=== PATIENT | male | born 2000 | race Caucasian/White ===

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

== ENCOUNTER 2025-06-30 10:46 | Inpatient (IN) ==
[2025-06-30 11:34] LABS: Appearance Urine Turbid (Clear); Glucose Urine UA Negative (Negative)
[2025-06-30 11:46] LABS: Hematocrit (blood only) 40.8 % (42.0-52.0); Hemoglobin 14.3 g/dl (14.0-18.0); Immature Granulocytes # (auto) 0.02 K/uL (0.01-0.20); Immature Granulocytes % (auto) 0.3 %; Mean Corpuscular Hemoglobin 29.8 pg (25.0-34.0); Mean Corpuscular Volume 85.0 fL (80.0-100.0); Platelet Count 246 K/uL (130-400); RDW Standard Deviation 36.9 fL (36.4-46.3); Red Blood Count 4.80 M/uL (4.70-6.10); White Blood Count 7.26 K/ul (4.8-10.8)
[2025-06-30 11:47] LABS: Epithelial Cell Urine 0-2 /hpf (0-2)
[2025-06-30 11:57] LABS: Amphetamines+Metham, Urine Neg (Neg); MDMA (Ecstacy), Urine Pos (Neg); Marijuana, Urine Neg (Neg)
[2025-06-30 12:05] LABS: Alanine Aminotransferase 31.0 U/L (7-52); Albumin Globulin Ratio 1.7 (0.9-2); Alkaline Phosphatase 49.0 U/L (34-104); Anion Gap 7.0 (3-11); Bilirubin,Total 0.5 mg/dl (0.2-1.0); Blood Urea Nitrogen 14.0 mg/dl (6-23); Calcium 9.6 mg/dl (8.6-10.3); Carbon Dioxide 27.0 mmol/L (21-32); Chloride 104.0 mmol/L (98-107); Creatinine Clr Calc Pharmacy 124.9 ml/min; Globulin 2.8 gm/dl (2.5-4.0); Glucose 114.0 mg/dl (70-99(Fasting)); Potassium 4.1 mmol/L (3.5-5.1); Sodium 138.0 mmol/L (136-145); Total Protein 7.5 gm/dl (6.0-8.3)
[2025-06-30 12:09] LABS: Acetaminophen < 3 ug/ml (10-30); Salicylate < 3.0 mg/dl (3.0-30)
[2025-06-30 12:19] LABS: Thyroid Stimulating Hormone 2.591 uIu/ml (0.300-4.500)
--- NOTE | 2025-06-30 12:39 | Emergency Department Note ---
Impression & Plan Depression with suicidal ideation ED Provider Note NAME: JODY LEE AGE: 24 SEX: M : 2000 ARRIVES VIA: Walk-In INFORMANT: Patient ED PROVIDER(S): Nando Askew MD CHIEF COMPLAINT: Suicidal ideation PLAN: Disposition: Inpatient psychiatric treatment. MEDICAL DECISION MAKING: The patient is a pleasant 24-year-old gentleman with a past medical history of anxiety/depression who presents to the emergency department accompanied by his mother for evaluation of suicidal ideation that has been worsening over the past couple of days where he reports fleeting thoughts of killing himself with a gun which he does have access to. Patient was referred to the emergency department by his outpatient providers at [facility]. The patient is interested in inpatient psychiatric treatment. He denies any recent illness. On my evaluation the patient is in no acute distress, afebrile with stable vital signs. He endorses suicidal ideation with intermittent plan. WBC, hemoglobin and platelets within normal limits. Chemistry without metabolic acidosis. Electrolytes and LFTs unremarkable. TSH within normal limits. UA appears contaminated with 1+ bacteria but no nitrites. Urine drug screen was unremarkable. COVID-19 RNA, ELISA was negative. The patient was medically cleared. Referral was placed to [facility] who accepted the patient for voluntary inpatient psychiatric treatment. 201 was signed. Triage Nursing notes reviewed and agree them. Prior/external medical records reviewed Vital Signs: reviewed Differential diagnosis: Mood disorder, infection, hypoglycemia, electrolyte abnormalities, cardiac sources, intracerebral event, toxicologic, trauma, neurologic, as well as other pathologies. ER treatment provided: See below. Laboratory studies: See below Consultation(s): Case management. HPI: Per MDM. ROS: See above HPI for pertinent positives & negatives. A total of 10 systems reviewed and were otherwise negative. VITALS:See Below PHYSICAL EXAMINATION: GENERAL: Awake, alert, melancholy-appearing, in no distress HENT: Normocephalic, atraumatic. Oropharynx unremarkable. EYES: Normal conjunctiva. Sclera non-icteric. NECK: Supple. No nuchal rigidity. FROM. No JVD. RESPIRATORY: Clear to auscultation. CARDIAC: Regular rate, normal rhythm. Extremities warm and well perfused. Pulses equal. ABDOMEN: Soft, non-distended. No tenderness to palpation. No rebound or guarding. No masses. MUSCULOSKELETAL: Chest examination reveals no tenderness. The back is symmetrical on inspection without obvious abnormality. There is no CVA tenderness to palpation. No joint edema. LOWER EXTREMITIES: Calves are equal size bilaterally and non-tender. No edema. No discoloration. NEURO: Normal sensorium. No sensory or motor deficits noted. SKIN: No rash or jaundice noted. PSYCH: Depression, Suicidal ideation, intermittent plan. Nando Askew MD Past Med/Surg History Problem List (Updated 06/30/25 @ 17:16 by Nando Askew MD) Depression with suicidal ideation (Acute) Acid reflux (Chronic) Depression with anxiety (Chronic) Seasonal allergies (Chronic) Irritable bowel syndrome (IBS) (Chronic) Medical History Dysuria Atopic dermatitis History of gastroesophageal reflux (GERD) Surgical History History of wisdom tooth extraction Family History Mother Thyroid disease Kidney stones Father Asthma Sister No problems noted. 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 How many Children do You have: 0 Feels Safe at Home: Yes Childhood Exposure to Second-Hand Smoke: No Diet: regular caffeine: Yes Dental Care, Regularly: Yes Physical Activity Frequency: 1-2 Times per Week Seatbelt Use: always Sunscreen Use: Yes Do you think of yourself as: straight/heterosexual Gender Identity: Male Assistive Devices: None Allergies Allergies Allergy/AdvReac Type Severity Reaction Status Date / Time No Known Allergies Allergy Verified 03/11/24 08:59 Home Meds Home Medications Medication Instructions Recorded Confirmed desvenlafaxine succinate 25 mg 25 mg PO DAILY 06/30/25 06/30/25 tablet,extended release 24 hr trazodone 50 mg tablet 50 mg PO QPM 06/30/25 06/30/25 Previous Rx's Medication Instructions Recorded esomeprazole magnesium 20 mg 20 mg PO DAILY #90 caps 05/10/25 capsule,delayed release Results & Data (ED) Vital Signs Vital Signs - 24 hr 06/30/25 10:53 06/30/25 12:40 06/30/25 14:25 Temperature 36.5 C Temperature Source Temporal Artery Scan Pulse Rate 86 Pulse Rate [Finger] 99 H 101 H Pulse Rhythm Regular Pulse Strength Normal Respiratory Rate 20 17 17 Respiratory Effort / Characteristics Non-Labored Spontaneous Non-Labored Spontaneous Non-Labored Spontaneous Respiratory Depth Normal Normal Normal Respiratory Pattern Blood Pressure 122/85 Blood Pressure [Right Arm] 132/87 137/82 Blood Pressure Mean 97 Blood Pressure Mean [Right Arm] 102 100 Blood Pressure Position Sitting Pulse Oximetry 96 96 98 Oxygen Delivery Method Room Air Room Air Room Air Sepsis Recent Fever Within 48 Hours No Sepsis New/Unexplained Change in Mental Status N/A Sepsis Action Taken by Nursing No Action Required 06/30/25 15:52 Temperature Temperature Source Pulse Rate Pulse Rate [Finger] 88 Pulse Rhythm Pulse Strength Respiratory Rate 16 Respiratory Effort / Characteristics Non-Labored Spontaneous Respiratory Depth Normal Respiratory Pattern Regular Blood Pressure Blood Pressure [Right Arm] 122/70 Blood Pressure Mean Blood Pressure Mean [Right Arm] 87 Blood Pressure Position Pulse Oximetry 97 Oxygen Delivery Method Room Air Sepsis Recent Fever Within 48 Hours Sepsis New/Unexplained Change in Mental Status Sepsis Action Taken by Nursing Laboratory Data Attestation: I reviewed the patient's lab results. 06/30/25 11:23 06/30/25 11:23 Lab Results 06/30/25 06/30/25 Range/Units 11:04 11:23 WBC 7.26 (4.8-10.8) K/ul RBC 4.80 (4.70-6.10) M/uL Hgb 14.3 (14.0-18.0) g/dl Hct 40.8 L (42.0-52.0) % MCV 85.0 (80.0-100.0) fL MCH 29.8 (25.0-34.0) pg MCHC 35.0 (32.0-36.0) g/dL RDW Std Deviation 36.9 (36.4-46.3) fL RDW Coeff of Chema 11.9 (11.5-14.5) % Plt Count 246 (130-400) K/uL MPV 10.6 (9.4-12.4) fL Immature Gran % (Auto) 0.3 % Neut % (Auto) 61.2 % Lymph % (Auto) 27.4 % [place] % (Auto) 9.4 % Eos % (Auto) 1.1 % Baso % (Auto) 0.6 % Neut # (Auto) 4.45 (1.40-6.50) K/uL Lymph # (Auto) 1.99 (1.20-3.40) K/uL [place] # (Auto) 0.68 H (0.11-0.59) K/uL Eos # (Auto) 0.08 (0.00-0.50) K/uL Baso # (Auto) 0.04 (0.00-0.20) K/uL Immature Gran # (Auto) 0.02 (0.01-0.20) K/uL Sodium 138 (136-145) mmol/L Potassium 4.1 (3.5-5.1) mmol/L Chloride 104 (98-107) mmol/L Carbon Dioxide 27 (21-32) mmol/L Anion Gap 7 (3-11) BUN 14 (6-23) mg/dl Creatinine 1.01 (0.6-1.4) mg/dl Est Cr Clr Drug Dosing 124.9 ml/min eGFR 107.17 BUN/Creatinine Ratio 13.9 (10-20) Glucose 114 H (70-99(Fasting)) mg/dl Calcium 9.6 (8.6-10.3) mg/dl Total Bilirubin 0.5 (0.2-1.0) mg/dl AST 21 (13-39) U/L ALT 31 (7-52) U/L Alkaline Phosphatase 49 (34-104) U/L Total Protein 7.5 (6.0-8.3) gm/dl Albumin 4.7 (3.4-5.0) gm/dl Globulin 2.8 (2.5-4.0) gm/dl Albumin/Globulin Ratio 1.7 (0.9-2) TSH 2.591 (0.300-4.500) uIu/ml Urine Color Alyson Urine Appearance Turbid A (Clear) Urine pH 6.0 (4.5-7.5) Ur Specific [place] >= 1.030 (1.000-1.030) Urine Protein 1+ H (Negative) Urine Glucose (UA) Negative (Negative) Urine Ketones Negative (Negative) Urine Blood Trace-intact H (Negative) Urine Nitrite Negative (Negative) Urine Bilirubin Negative (Negative) Urine Urobilinogen Negative (Negative) Ur Leukocyte Esterase Negative (Negative) Urine RBC 0-2 (0-2) /hpf Urine WBC 0-5 (0-5) /hpf Ur Epithelial Cells 0-2 (0-2) /hpf Urine Bacteria 1+ H (None Seen) Urine Mucus Present A (None Prsent) Urine Sperm Present A (None Prsent) Urine Comment Salicylates < 3.0 L (3.0-30) mg/dl Urine Opiates Screen Neg (Neg) Ur Methadone, Qual Neg (Neg) Urine Fentanyl Screen Neg (Neg) Acetaminophen < 3 L (10-30) ug/ml Urine Barbiturates Neg (Neg) Ur Phencyclidine (PCP) Neg (Neg) U Amphetamin/Meth Scrn Neg (Neg) MDMA (Ecstasy) Screen Pos H (Neg) U Benzodiazepines Scrn Neg (Neg) Ur Cocaine Metabolite Neg (Neg) U Marijuana (THC) Screen Neg (Neg) Ethyl Alcohol mg/dL < 10.0 (<10.0) mg/dl Administered Medications Discontinued Medications Trazodone HCl (Trazodone Hcl 50 Mg Tab) 50 mg PO HS ONE Stop: 06/30/25 22:01 Last Admin: 06/30/25 21:16 Dose: 50 mg Documented By: LIZ Discharge Plan Visit Data Chief Complaint: Mental Health Evaluation Stated Complaint: DEPRESSION, SUICIDAL THOUGHTS ED Provider: Nando Askew Discharge Problem: Depression with suicidal ideation Patient Disposition: Admitted As Inpatient Condition: Fair Discharge Instructions Interventions: ED Discharge Assessment Last Done: 06/30/25 16:08
[2025-06-30] MEDS ORDERED: ALUMINUM/MAGNESIUM SUSP 30 ML UDC PO PRN (17:01)
[2025-06-30] MEDS ORDERED: SODIUM CHLORIDE 0.65% NA SOLN 45 ML (OCEAN) PRN (17:01)
[2025-06-30] MEDS ORDERED: BISMUTH SUBSALICYLATE 262 MG CHEW PO PRN (17:01)
[2025-06-30] MEDS ORDERED: MAGNESIUM HYDROXIDE SUSP 30 ML UDC PO PRN (17:01)
[2025-06-30 18:04] VITALS: O2SAT 98
--- NOTE | 2025-07-01 08:40 | History & Physical ---
Date of Service July 01, 2025 Impression / Recommendations Impression Diagnostically consistent with unspecified depressive disorder likely major depressive disorder recurrent episode with suicidal ideation and co-occurring social anxiety in the context of medication ineffectiveness and chronic psychosocial stressors. However also wonder about possible bipolar affective disorder type II and potential benefit of augmentation with a mood stabilizer given family history of bipolar disorder and depression onset during early adolescence versus undiagnosed ADHD given ongoing chronic difficulty focusing on school which seems to contribute and exacerbate depressive episodes. Would also wonder about possible hypermetabolism requiring higher doses of medication and thus a potential explanation for why previous trials of SSRI/SNRIs have all been ineffective. Additionally his past medication trials have been fairly brief and outside of the typical minimum 6-week timeframe to see effect. Discussed medication treatment options in detail including [place] augmentation vs stimulant trial vs alternative SSRI/SNRI. Reviewed risk, benefits and alternatives. He consents to switching from Pristiq to duloxetine with plan to titrate as tolerated as previous trial of this was effective for depression and anxiety. He also consents to switching from trazodone to mirtazapine to help with sleep, potential augmentation of antidepressant effect and possible benefit for IBS. He consents to initiating Adderall for depression augmentation and possible undiagnosed ADHD. Reviewed side effects including but not limited to GI upset/headache/sexual side effects with duloxetine and blackbox warning for increased SI and need to seek help should this happen in the future: Sedation/weight gain/increased appetite with mirtazapine: Insomnia/decreased appetite/potential for misuse/increased anxiety/cardiac risk (no family history of sudden cardiac or personal history of cardiac issues) with Adderall. Also discussed the importance of therapy for depression and anxiety reviewed option for intensive outpatient program which he will consider. Reviewed symptoms questionnaires: negative Primo BPD screen, negative Mood Disorder Questionnaire, PHQ-9 score of 20, FRIDA-7 score of 4. Overall I spent a total of 80 minutes for this admission including review of chart records, review of labwork, direct evaluation of the patient, counseling the patient, ordering medication, risk assessment, discussion with the psychiatric liason RN and documentation in the electronic health record. (1) Depression with suicidal ideation: (2) Social anxiety disorder: (3) Irritable bowel syndrome (IBS): (4) Attention and concentration deficit: Plan 07/01/2025: The patient was admitted to the [facility] (locked inpatient mental health unit) on q15 min checks (behavioral with suicide precautions) for safety. The patient will participate in group, recreational, and milieu therapies and will be offered additional individual and family sessions as clinically appropriate. -Discontinue Pristiq and trazodone -Start duloxetine 30mg daily -Start mirtazapine 15mg HS -Start Adderall IR 10mg X1 today and then Adderall ER 20mg starting tomorrow morning Inventory Assets Strengths: supportive relationships, willing to get treatment Needs: safety and stabilization, medication adjustment, additional coping skills, increased outpatient services Suicide Risk Level Suicide Risk Level: High-Moderate (q15 min suicide checks) (worsening depression with SI with plans but feels safe in the hospital, feels able to ask for support) Suicide Risk Level Comments: Risk Factors Assessment Male: Yes : Yes Do You Have Access To A Gun?: No (mother secured) Health Problems: Yes (IBS) Mental Health Diagnoses: Yes Substance Use Disorders: No Previous Attempt: No Family History of Suicide: No Previous Psychiatric Hospitalization: No Hopelessness: Yes Protective Factors Assessment Employed: Yes Stable Relationships: Yes Supportive Family: Yes Psychiatric History Identifying Data JODY LEE is a 24-year-old M who currently lives in [place] with his parents, has a history of anxiety and depression, and was admitted on 06/30/25 16:12 on a 201 voluntary commitment for SI with plans to shoot himself or cut himself. Chief Complaint "I really have no motivation". History of Present Illness He presents for psychiatric admission for worsening depression and SI with plan of shooting himself or cutting himself in the context of multiple psychosocial stressors including withdrawal from [employer], academic stress, concerns about his future career as well as worries about the state of the world and economy. He reports experiencing daily suicidal thoughts that have become more consistent with plans of possibly shooting himself with a gun or cutting himself compared to previous passive ideation which has occurred intermittently for the last few years. He describes feeling helpless and hopeless with lack of motivation, anhedonia and pessimism that have intensified significantly. He endorses depressive symptoms including anhedonia, decreased motivation, "negative thoughts", helplessness, hopelessness, decreased energy, decreased appetite but this is typical, and erratic sleep but trazodone has been helping make sleep more regular but often sleeps too much. SI has been occurring almost daily for the last few months and in recent weeks has intensified to become consistent and thinking about shooting himself or cutting himself. Prior to this exacerbation Jody had been trying various medications for depression anxiety he has been taking Pristiq which seems to have helped with anxiety but not depression for the last few weeks. He reports that Cymbalta had been the most successful medication so far but was discontinued. Previous medications including Prozac and Zoloft worked briefly then stopped being effective and were discontinued. Wellbutrin showed no noticeable difference after about 3 weeks and was also discontinued. Jody reports difficulty motivating himself to complete schoolwork struggling not due to inability but lack of interest. He suspects that this did not become an issue until college as previously he did well despite not getting work done or staying on track in terms of focusing. This is impact his academic performance leading to being in and out of college for the past 4 years. Additionally he reports not enjoying time spent with friends or even playing games, activities he previously found pleasurable unable to focus on. He identifies poor motivation and difficulty focusing on academics which has disrupted his ability to get through college over the last few years. Target symptoms identified as: motivation and lack of enjoyment "in anything that I'm doing". The anhedonia has been on and off, was problematic about a year ago and then worsened again about 2-3 months ago. He endorses some anxiety but doesn't feel this impacts him as much day to day. Tends to be more of an issue in social settings. He is currently prescribed: Pristiq (but met with Sirisha yesterday and plan was going to be switch this medication), trazodone 50mg HS (helps with sleep maintenance). Psychiatric ROS notable for no current nor history of symptoms of carrie, psychosis, PTSD, OCD nor eating disorder. History of self-harm/"anger management issues for a long time" with hitting head against desk or bedframe sometimes to the point of bruising or swelling typically if abrupt anger is triggered. Past Psychiatric History Current Psychiatric Diagnosis: Anxiety and Depression Outpatient Services: [facility] tried therapy 4-5 times throughout life, none in recent years Previous Psych Admissions: none Do You Have Access To A Gun?: No (mother secured) History of Previous Suicide Attempt: No Past Medication Trials: SSRI: -Prozac -Zoloft SNRI: -Cymbalta (most successful so far, went to 60mg) Wellbutrin: -didn't notice a difference no mood stabilizations Antipsychotics: Abilify (not much of a difference) Allergies Allergy/AdvReac Type Severity Reaction Status Date / Time No Known Allergies Allergy Verified 03/11/24 08:59 Home Medications Medication Instructions Recorded Confirmed Type esomeprazole magnesium 20 mg 20 mg PO DAILY #90 caps 05/10/25 06/30/25 Rx capsule,delayed release desvenlafaxine succinate 25 mg 25 mg PO DAILY 06/30/25 06/30/25 History tablet,extended release 24 hr trazodone 50 mg tablet 50 mg PO QPM 06/30/25 06/30/25 History Family History Family History of: Depression Family Mental Health History Comment: paternal grandfather dx with bipolar Alcohol History Hx of Alcohol Use Over the Past 12 Months: No AUDIT Total Score: 0 Smoking Use Have You Smoked or Used Tobacco Products in the Last 30 Days: No Smoking Status: Never smoker Substance History Hx of Prescription Med Misuse Over the Past 12 Months: No Hx of Over the Counter Med Misuse Over the Past 12 Months: No Hx of Inhalent Misuse Over the Past 12 Months: No Hx of Organic Substance Use Over the Past 12 Months: No Hx of Illegal Substances/Street Drug Use Over Past 12 Months: No Problems as a Result of Past Substance Use: None Identified Personal History Living Arrangements: Home Highest Grade Completed: Some College (struggles academically) Employment Status: Unemployed Marital Status: Single Beliefs That Will Affect Care: None Current Legal Problems: No Hx Legal Problems: No Patient History Medical History Dysuria Atopic dermatitis History of gastroesophageal reflux (GERD) Surgical History History of wisdom tooth extraction Family History Mother Thyroid disease Kidney stones Father Asthma Sister No problems noted. 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 How many Children do You have: 0 Feels Safe at Home: Yes Childhood Exposure to Second-Hand Smoke: No Diet: regular caffeine: Yes Dental Care, Regularly: Yes Physical Activity Frequency: 1-2 Times per Week Seatbelt Use: always Sunscreen Use: Yes Do you think of yourself as: straight/heterosexual Gender Identity: Male Assistive Devices: None Review of Systems Review of Systems: All systems reviewed & are unremarkable except as noted in HPI & below Physical Exam Psychiatric: Orientation: alert and oriented x 3 Apperance: appropriately dressed and appropriately groomed Eye Contact: good eye contact Motor Behavior: no abnormal motor movements Speech: normal rate/rhythm/volume of speech Affect: + depressed affect and + blunted affect Mood: + depressed mood Thought Process: goal directed thought process Thought Content: reality based without delusions and + hopelessness Suicidal Thoughts: denies suicidal plan and denies suicidal intent; + reports suicidal thoughts (intermittent ) Homicidal Thoughts: denies homicidal thoughts Hallucinations: no auditory hallucinations and no visual hallucinations Cognition: recent memory grossly intact, remote memory grossly intact, attention grossly intact and language grossly intact Estimated Intelligence: consistent with education level Insight: + fair insight Judgment: + fair judgement Vital Signs (Past 24 Hours): Last Vital Signs Temp 37.2 C 07/01/25 06:25 Pulse 85 07/01/25 06:25 Resp 18 07/01/25 06:25 BP 121/81 07/01/25 06:42 Pulse Ox 98 07/01/25 06:25 O2 Del Method Room Air 07/01/25 06:25 Exam Statement: A physical exam was performed in the ED by Dr. Askew for the purposes of medical clearance. I accept that physical as correct and adequate for the purposes of the inpatient physical exam. Results & Data ([facility]) Laboratory Results Laboratory Results - last 24 hr 06/30/25 06/30/25 06/30/25 11:04 11:23 Unknown WBC 7.26 RBC 4.80 Hgb 14.3 Hct 40.8 L MCV 85.0 MCH 29.8 MCHC 35.0 RDW Std Deviation 36.9 RDW Coeff of [place]ma 11.9 Plt Count 246 MPV 10.6 Immature Gran % (Auto) 0.3 Neut % (Auto) 61.2 Lymph % (Auto) 27.4 [place] % (Auto) 9.4 Eos % (Auto) 1.1 Baso % (Auto) 0.6 Neut # (Auto) 4.45 Lymph # (Auto) 1.99 [place] # (Auto) 0.68 H Eos # (Auto) 0.08 Baso # (Auto) 0.04 Immature Gran # (Auto) 0.02 Sodium 138 Potassium 4.1 Chloride 104 Carbon Dioxide 27 Anion Gap 7 BUN 14 Creatinine 1.01 Est Cr Clr Drug Dosing 124.9 eGFR 107.17 BUN/Creatinine Ratio 13.9 Glucose 114 H Calcium 9.6 Total Bilirubin 0.5 AST 21 ALT 31 Alkaline Phosphatase 49 Total Protein 7.5 Albumin 4.7 Globulin 2.8 Albumin/Globulin Ratio 1.7 TSH 2.591 Urine Color Alyson Urine Appearance Turbid A Urine pH 6.0 Ur Specific [place] >= 1.030 Urine Protein 1+ H Urine Glucose (UA) Negative Urine Ketones Negative Urine Blood Trace-intact H Urine Nitrite Negative Urine Bilirubin Negative Urine Urobilinogen Negative Ur Leukocyte Esterase Negative Urine RBC 0-2 Urine WBC 0-5 Ur Epithelial Cells 0-2 Urine Bacteria 1+ H Urine Mucus Present A Urine Sperm Present A Urine Comment Salicylates < 3.0 L Urine Opiates Screen Neg Ur Methadone, Qual Neg Urine Fentanyl Screen Neg Acetaminophen < 3 L Urine Barbiturates Neg Ur Phencyclidine (PCP) Neg U Amphetamin/Meth Scrn Neg Urine MDEA Pending MDMA (Ecstasy) Screen Pos H MDMA Pending Urine MDMA Pending U Benzodiazepines Scrn Neg Ur Cocaine Metabolite Neg U Marijuana (THC) Screen Neg Ethyl Alcohol mg/dL < 10.0 SARS-CoV-2, RNA, NAAT NEGATIVE Current Inpatient Medications Current Inpatient Medications: Current Inpatient Medications Acetaminophen (Acetaminophen 325 Mg Tab) 650 mg PO Q4H PRN PRN Reason: Headache or Minor Fever Stop: 07/30/25 17:00 Al Hydrox/Mg Hydrox/Simethicone (Aluminum/Magnesium Susp 30 Ml Udc) 30 ml PO Q4H PRN PRN Reason: GI Upset Stop: 07/30/25 17:00 Bismuth Subsalicylate (Bismuth Subsalicylate 262 Mg Chew) 2 tab PO Q30M PRN PRN Reason: Loose Stool/Diarrhea Stop: 07/30/25 17:00 Hydroxyzine HCl (Hydroxyzine Hcl 25 Mg Tab) 50 mg PO HSZ PRN PRN Reason: Insomnia Stop: 07/30/25 21:59 Hydroxyzine HCl (Hydroxyzine Hcl 25 Mg Tab) 25 mg PO Q4H PRN PRN Reason: Anxiety Stop: 07/30/25 17:00 Magnesium Hydroxide (Magnesium Hydroxide Susp 30 Ml Udc) 30 ml PO DAILY PRN PRN Reason: Constipation Stop: 07/30/25 17:00 Sodium Chloride (Sodium Chloride 0.65% Na Soln 45 Ml (Bantam)) 1 - 2 sprays NA PRN PRN PRN Reason: Nasal Dryness/Congestion Stop: 07/30/25 17:00
[2025-07-01] MEDS: DEXTROAMPHETAMINE/AMPHETAMINE IR 20 MG TAB PO ONE (12:47)
[2025-07-01] MEDS: MIRTAZAPINE TAB 15 MG TAB PO SCH (21:45)
[2025-07-02 06:21] VITALS: RESP 16
--- NOTE | 2025-07-02 16:44 | Psychiatric Progress Note ---
Date of Service July 02, 2025 Impression / Recommendations Impression JODY LEE is a 24-year-old M who currently lives in [place] with his parents, has a history of anxiety and depression, and was admitted on 06/30/25 16:12 on a 201 voluntary commitment for SI with plans to shoot himself or cut himself. Diagnostically consistent with unspecified depressive disorder likely major depressive disorder recurrent episode with suicidal ideation and co-occurring social anxiety in the context of medication ineffectiveness and chronic psychosocial stressors. However also wonder about possible bipolar affective disorder type II and potential benefit of augmentation with a mood stabilizer given family history of bipolar disorder and depression onset during early adolescence. A: Overnight slept well. Suicidal ideations lessening. Concern for BP2 depression given early age of depression onset, family history, treatment failures, and possible hypomanic episodes in the past. Tolerating the medications well. Will d/c Adderall as it may impact sleep and would benefit from resolution of major depressive episode prior to evaluation and initiation of ADHD treatment. Overall, I spent a total of 45 minutes with this case including review of chart records, nursing report, review of lab work, direct evaluation of the patient at bedside, counseling the patient, multidisciplinary team meeting, orders, and documentation in the electronic health record. (1) Depression with suicidal ideation: (2) Social anxiety disorder: (3) Irritable bowel syndrome (IBS): (4) Attention and concentration deficit: Plan 07/02/25: D/c Adderall Labs: vit B12, vit D, fasting lipids, A1C 07/01/2025: The patient was admitted to the [facility] ([facility] mental [facility] unit) on q15 min checks (behavioral with suicide precautions) for safety. The patient will participate in group, recreational, and milieu therapies and will be offered additional individual and family sessions as clinically appropriate. -Discontinue Pristiq and trazodone -Start duloxetine 30mg daily -Start mirtazapine 15mg HS -Start Adderall IR 10mg X1 today and then Adderall ER 20mg starting tomorrow morning Inventory Assets Strengths: supportive relationships, willing to get treatment Needs: safety and stabilization, medication adjustment, additional coping skills, increased outpatient services Suicide Risk Level Suicide Risk Level: High-Moderate (q15 min suicide checks) (worsening depression with SI with plans but feels safe in the hospital, feels able to ask for support) Suicide Risk Level Comments: Risk Factors Assessment Male: Yes : Yes Do You Have Access To A Gun?: No Health Problems: Yes (IBS) Mental Health Diagnoses: Yes Substance Use Disorders: No Previous Attempt: No Family History of Suicide: No Previous Psychiatric Hospitalization: No Hopelessness: Yes Protective Factors Assessment Employed: Yes Stable Relationships: Yes Supportive Family: Yes Interval History Identifying Information JODY LEE is a 24-year-old M who currently lives in [place] with his parents, has a history of anxiety and depression, and was admitted on 06/30/25 16:12 on a 201 voluntary commitment for SI with plans to shoot himself or cut himself. Chief Complaint "Anxiety and depression" Review of Systems Sleep Information Total Hours of Sleep: 6.5 Meal Information Percent Meal Consumed - Breakfast: 100 Percent Meal Consumed - Lunch: 50 Percent Meal Consumed - Dinner: 100 Subjective Subjective Patient was seen & assessed and interval progress reviewed with treatment team nursing and social work The patient reports that suicidal thoughts have become more intense recently. Saw his outpatient provider at [facility] and recommended an inpatient evaluation. Complains of increased hopelessness and anhedonia. Reports depression that started this summer and prior depressive episode last year to beginning of this year. Was previously on Prozac and Zoloft and did well initially however later felt numb and self-discontinued the medication. Reports having increased dysfunction in school and taking a leave of absence. Reports first having anxiety in elementary school and then depression in middle school. Reports past periods lasting a few days where he would become "obsessed" about a hobby and would make excess purchases which she later regretted; at this time he would spend in excess amount of time related to the hobby including making many plans. "High intensity spurts with hobbies". Reports having social anxiety which was a larger problem in the past and was related to fear of failure, fear of judgment, fear of expectations or being misunderstood. Has difficulty with bosses and teachers. Does not impact him leaving his home. Family psychiatric history significant for sister with panic attacks and irrational fear, mother with anxiety and depression, father with suspected depression, paternal grandfather with bipolar disorder on medications. Denies drug or alcohol problem. Denies recurrent nightmares. Reports Adderall made him "marginally less depressed". Physical Exam Mental Examination Appearance: Well Groomed Eye Contact: Direct Eye Contact Motor Behavior: Restless Speech: Soft Mood: Calm and Sad Affect: Flat Thought Process: Intact and Linear Thought Content: Intact Hallucinations: None Insight: Fair (to limited) Judgement: Good Vital Signs (Past 24 Hours) Last Vital Signs Temp 36.5 C 07/02/25 06:20 Pulse 80 07/02/25 06:21 Resp 16 07/02/25 06:20 BP 112/70 07/02/25 06:21 Pulse Ox 98 07/01/25 06:25 O2 Del Method Room Air 07/01/25 06:25 Results & Data ([facility]) Current Inpatient Medications Current Inpatient Medications: Current Inpatient Medications Acetaminophen (Acetaminophen 325 Mg Tab) 650 mg PO Q4H PRN PRN Reason: Headache or Minor Fever Stop: 07/30/25 17:00 Al Hydrox/Mg Hydrox/Simethicone (Aluminum/Magnesium Susp 30 Ml Udc) 30 ml PO Q4H PRN PRN Reason: GI Upset Stop: 07/30/25 17:00 Amphetamine/Dextroamphetamine (Dextroamphetamine/Amphetamine Er 20 Mg Cap) 20 mg PO QAM JIMENA Stop: 07/16/25 08:59 Last Admin: 07/02/25 09:16 Dose: 20 mg Bismuth Subsalicylate (Bismuth Subsalicylate 262 Mg Chew) 2 tab PO Q30M PRN PRN Reason: Loose Stool/Diarrhea Stop: 07/30/25 17:00 Duloxetine HCl (Duloxetine Hcl 30 Mg Cap) 30 mg PO QAM JIMENA Stop: 07/31/25 12:44 Last Admin: 07/02/25 09:16 Dose: 30 mg Hydroxyzine HCl (Hydroxyzine Hcl 25 Mg Tab) 50 mg PO HSZ PRN PRN Reason: Insomnia Stop: 07/30/25 21:59 Hydroxyzine HCl (Hydroxyzine Hcl 25 Mg Tab) 25 mg PO Q4H PRN PRN Reason: Anxiety Stop: 07/30/25 17:00 Magnesium Hydroxide (Magnesium Hydroxide Susp 30 Ml Udc) 30 ml PO DAILY PRN PRN Reason: Constipation Stop: 07/30/25 17:00 Mirtazapine (Mirtazapine Tab 15 Mg Tab) 15 mg PO HS JIMENA Stop: 07/31/25 21:59 Last Admin: 07/01/25 21:45 Dose: 15 mg Pantoprazole Sodium (Pantoprazole 40 Mg Tab) 40 mg PO DAILY JIMENA Stop: 07/31/25 12:14 Last Admin: 07/02/25 09:16 Dose: 40 mg Sodium Chloride (Sodium Chloride 0.65% Na Soln 45 Ml ([place])) 1 - 2 sprays NA PRN PRN PRN Reason: Nasal Dryness/Congestion Stop: 07/30/25 17:00 Mental Health & Subst Abuse Tx Psychiatrist Name of Psychiatrist: Sirisha Herrmann (In person appt) Psychiatrist's Date Of Appointment With Psychiatric Provider: 07/27/25 Time of Appointment with Psychiatrist: 10:40AM Psychiatric Appointment Comment: [address], [place] [address] Post Discharge Appointments Primary Care Physician Name Of Family Doctor/PCP: Flaco Edmondson - [facility] Contact Information Discharge Discharge Address: [address] [place] [id number]
[2025-07-03 07:56] LABS: Cholesterol 195.0 mg/dl (0-200); HDL Cholesterol 32.0 mg/dl; Triglycerides 183.0 mg/dl (0-150)
[2025-07-03 08:09] LABS: Hemoglobin A1C 5.5 % (4.5-5.6)
[2025-07-03] MEDS: CHOLECALCIFEROL 125 MCG (5,000 UNITS) TAB PO SCH (10:08)
[2025-07-03 15:47] LABS: MDA negative; MDEA negative; MDMA (Ecstasy) Urine, Confirm negative
--- NOTE | 2025-07-03 15:55 | Psychiatric Progress Note ---
Date of Service July 03, 2025 Impression / Recommendations Impression JODY LEE is a 24-year-old M who currently lives in [place] with his parents, has a history of anxiety and depression, and was admitted on 06/30/25 16:12 on a 201 voluntary commitment for SI with plans to shoot himself or cut himself. Diagnostically consistent with unspecified depressive disorder likely major depressive disorder recurrent episode with suicidal ideation and co-occurring social anxiety in the context of medication ineffectiveness and chronic psychosocial stressors. However also wonder about possible bipolar affective disorder type II and potential benefit of augmentation with a mood stabilizer given family history of bipolar disorder and depression onset during early adolescence. A: Patient is sleeping well and tolerating the medications. Psych questionnaires reviewed and low suspicion for past hypomania/carrie. He was educated about outpatient therapy options and sleep hygiene. Vitamin D resulted as insufficient and supplementation was started. Ongoing anxious ruminations and distress. Overall, I spent a total of 45 minutes with this case including review of chart records, nursing report, review of lab work, direct evaluation of the patient at bedside, counseling the patient, multidisciplinary team meeting, orders, and documentation in the electronic health record. (1) Depression with suicidal ideation: (2) Social anxiety disorder: (3) Irritable bowel syndrome (IBS): (4) Attention and concentration deficit: Plan 07/03/25: Vit D3 5000u daily 07/02/25: D/c Adderall Labs: vit B12, vit D, fasting lipids, A1C 07/01/2025: The patient was admitted to the [facility] ([facility] mental health unit) on q15 min checks (behavioral with suicide precautions) for safety. The patient will participate in group, recreational, and milieu therapies and will be offered additional individual and family sessions as clinically appropriate. -Discontinue Pristiq and trazodone -Start duloxetine 30mg daily -Start mirtazapine 15mg HS -Start Adderall IR 10mg X1 today and then Adderall ER 20mg starting tomorrow morning Inventory Assets Strengths: supportive relationships, willing to get treatment Needs: safety and stabilization, medication adjustment, additional coping skills, increased outpatient services Suicide Risk Level Suicide Risk Level: High-Moderate (q15 min suicide checks) (worsening depression with SI with plans but feels safe in the hospital, feels able to ask for support) Suicide Risk Level Comments: Risk Factors Assessment Male: Yes : Yes Do You Have Access To A Gun?: No Health Problems: Yes (IBS) Mental Health Diagnoses: Yes Substance Use Disorders: No Previous Attempt: No Family History of Suicide: No Previous Psychiatric Hospitalization: No Hopelessness: Yes Protective Factors Assessment Employed: Yes Stable Relationships: Yes Supportive Family: Yes Interval History Identifying Information JODY LEE is a 24-year-old M who currently lives in [place] with his parents, has a history of anxiety and depression, and was admitted on 06/30/25 16:12 on a 201 voluntary commitment for SI with plans to shoot himself or cut himself. Chief Complaint Depression, anxiety Review of Systems Sleep Information Total Hours of Sleep: 7.25 Meal Information Percent Meal Consumed - Breakfast: 75 Percent Meal Consumed - Lunch: 100 Percent Meal Consumed - Dinner: 45 Subjective Subjective Patient was seen & assessed and interval progress reviewed with treatment team nursing and social work Attending some groups. Slept 7 hours. Parents visited. Patient reports sleep disruptions however is able to fall back asleep. Appears restless. Endorses poor sleep hygiene with irregular sleep patterns and we discussed sleep hygiene practices. Patient is interested in an in person intensive outpatient program. Having anxious ruminations about the future and reports often having negative thinking. Reports being depressed for so long that he starts to question his abilities. Denies current SI. Physical Exam Mental Examination Appearance: Well Groomed Eye Contact: Direct Eye Contact Motor Behavior: Restless Speech: Soft Mood: Calm and Sad Affect: Flat Thought Process: Intact and Linear Thought Content: Intact Hallucinations: None Insight: Fair (to limited) Judgement: Good Vital Signs (Past 24 Hours) Last Vital Signs Temp 36.5 C 07/03/25 06:19 Pulse 85 07/03/25 06:19 Resp 16 07/03/25 06:19 BP 106/70 07/03/25 06:19 Pulse Ox 98 07/01/25 06:25 O2 Del Method Room Air 07/01/25 06:25 Results & Data ([facility]) Laboratory Results Laboratory Results - last 24 hr 06/30/25 07/03/25 11:04 07:21 Estimat Average Glucose 111 Hemoglobin A1c 5.5 Triglycerides 183 H Cholesterol 195 LDL Cholesterol, Calc 126 VLDL Cholesterol, Calc 37 H HDL Cholesterol 32 Cholesterol/HDL Ratio 6.1 H Vitamin B12 208 25-OH Vitamin D Total 21.6 L Urine MDEA negative MDMA negative Urine MDMA negative Current Inpatient Medications Current Inpatient Medications: Current Inpatient Medications Acetaminophen (Acetaminophen 325 Mg Tab) 650 mg PO Q4H PRN PRN Reason: Headache or Minor Fever Stop: 07/30/25 17:00 Al Hydrox/Mg Hydrox/Simethicone (Aluminum/Magnesium Susp 30 Ml Udc) 30 ml PO Q4H PRN PRN Reason: GI Upset Stop: 07/30/25 17:00 Bismuth Subsalicylate (Bismuth Subsalicylate 262 Mg Chew) 2 tab PO Q30M PRN PRN Reason: Loose Stool/Diarrhea Stop: 07/30/25 17:00 Duloxetine HCl (Duloxetine Hcl 30 Mg Cap) 30 mg PO QAM JIMENA Stop: 07/31/25 12:44 Last Admin: 07/03/25 10:06 Dose: 30 mg Hydroxyzine HCl (Hydroxyzine Hcl 25 Mg Tab) 50 mg PO HSZ PRN PRN Reason: Insomnia Stop: 07/30/25 21:59 Hydroxyzine HCl (Hydroxyzine Hcl 25 Mg Tab) 25 mg PO Q4H PRN PRN Reason: Anxiety Stop: 07/30/25 17:00 Magnesium Hydroxide (Magnesium Hydroxide Susp 30 Ml Udc) 30 ml PO DAILY PRN PRN Reason: Constipation Stop: 07/30/25 17:00 Mirtazapine (Mirtazapine Tab 15 Mg Tab) 15 mg PO HS JIMENA Stop: 07/31/25 21:59 Last Admin: 07/02/25 21:23 Dose: 15 mg Pantoprazole Sodium (Pantoprazole 40 Mg Tab) 40 mg PO DAILY JIMENA Stop: 07/31/25 12:14 Last Admin: 07/03/25 10:06 Dose: 40 mg Sodium Chloride (Sodium Chloride 0.65% Na Soln 45 Ml ([place])) 1 - 2 sprays NA PRN PRN PRN Reason: Nasal Dryness/Congestion Stop: 07/30/25 17:00 Vitamin D (Cholecalciferol 125 Mcg (5,000 Units) Tab) 125 mcg PO QAM JIMENA Stop: 08/02/25 09:59 Last Admin: 07/03/25 10:08 Dose: 125 mcg Mental Health & Subst Abuse Tx Psychiatrist Name of Psychiatrist: Sirisha Herrmann (In person appt) Psychiatrist's Date Of Appointment With Psychiatric Provider: 07/27/25 Time of Appointment with Psychiatrist: 10:40AM Psychiatric Appointment Comment: [address], [place] [address] Post Discharge Appointments Primary Care Physician Name Of Family Doctor/PCP: Flaco Edmondson - [facility] Contact Information Discharge Discharge Address: [address] [place] [id number]
[2025-07-03] MEDS: ACETAMINOPHEN 325 MG TAB PO PRN (22:19)
--- NOTE | 2025-07-04 15:49 | Psychiatric Progress Note ---
Date of Service July 04, 2025 Impression / Recommendations Impression JODY LEE is a 24-year-old M who currently lives in [place] with his parents, has a history of anxiety and depression, and was admitted on 06/30/25 16:12 on a 201 voluntary commitment for SI with plans to shoot himself or cut himself. Diagnostically consistent with unspecified depressive disorder likely major depressive disorder recurrent episode with suicidal ideation and co-occurring social anxiety in the context of medication ineffectiveness and chronic psychosocial stressors. However also wonder about possible bipolar affective disorder type II and potential benefit of augmentation with a mood stabilizer given family history of bipolar disorder and depression onset during early adolescence. A: Patient continues to be in a depressive episode with sleep disruptions, low mood, anxious ruminations. Has been tolerating the medications well with some improvement in sleep. Working with family to establish aftercare plans and recommending an intensive outpatient program. Overall, I spent a total of 35 minutes with this case including review of chart records, nursing report, review of lab work, direct evaluation of the patient at bedside, counseling the patient, multidisciplinary team meeting, orders, and documentation in the electronic health record. (1) Depression with suicidal ideation: (2) Social anxiety disorder: (3) Irritable bowel syndrome (IBS): (4) Attention and concentration deficit: Plan 07/04/2025: Continue medications and treatment plan 07/03/25: Vit D3 5000u daily 07/02/25: D/c Adderall Labs: vit B12, vit D, fasting lipids, A1C 07/01/2025: The patient was admitted to the [facility] ([facility] mental health unit) on q15 min checks (behavioral with suicide precautions) for safety. The patient will participate in group, recreational, and milieu therapies and will be offered additional individual and family sessions as clinically appropriate. -Discontinue Pristiq and trazodone -Start duloxetine 30mg daily -Start mirtazapine 15mg HS -Start Adderall IR 10mg X1 today and then Adderall ER 20mg starting tomorrow morning Inventory Assets Strengths: supportive relationships, willing to get treatment Needs: safety and stabilization, medication adjustment, additional coping skills, increased outpatient services Suicide Risk Level Suicide Risk Level: High-Moderate (q15 min suicide checks) (worsening depression with SI with plans but feels safe in the hospital, feels able to ask for support) Suicide Risk Level Comments: Risk Factors Assessment Male: Yes : Yes Do You Have Access To A Gun?: No Health Problems: Yes (IBS) Mental Health Diagnoses: Yes Substance Use Disorders: No Previous Attempt: No Family History of Suicide: No Previous Psychiatric Hospitalization: No Hopelessness: Yes Protective Factors Assessment Employed: Yes Stable Relationships: Yes Supportive Family: Yes Interval History Identifying Information JODY LEE is a 24-year-old M who currently lives in [place] with his parents, has a history of anxiety and depression, and was admitted on 06/30/25 16:12 on a 201 voluntary commitment for SI with plans to shoot himself or cut himself. Chief Complaint Depression Review of Systems Sleep Information Total Hours of Sleep: 6 Meal Information Percent Meal Consumed - Breakfast: 100 Percent Meal Consumed - Lunch: 100 Percent Meal Consumed - Dinner: 100 Subjective Subjective Patient was seen & assessed and interval progress reviewed with treatment team nursing and social work Overnight slept 6 hours. Endorses disrupted sleep. He is worried about getting back into school. Has been discussing aftercare plans with his family who is recommending a residential facility in [place] and will move with him for the temporary period. Feels "not optimistic" about the future. Denies active suicidal ideation. Through the interview the patient presents a constricted affect and appears ambivalent at times. Physical Exam Mental Examination Appearance: Well Groomed Eye Contact: Direct Eye Contact Motor Behavior: Unremarkable Speech: Soft Mood: Calm and Sad Affect: Flat Thought Process: Intact and Linear Thought Content: Intact Hallucinations: None Insight: Fair (to limited) Judgement: Good Vital Signs (Past 24 Hours) Last Vital Signs Temp 36.5 C 07/04/25 06:24 Pulse 78 07/04/25 06:24 Resp 16 07/04/25 06:24 BP 111/77 07/04/25 06:24 Pulse Ox 98 07/01/25 06:25 O2 Del Method Room Air 07/01/25 06:25 Results & Data ([facility]) Laboratory Results Laboratory Results - last 24 hr 06/30/25 11:04 Urine MDEA negative MDMA negative Urine MDMA negative Current Inpatient Medications Current Inpatient Medications: Current Inpatient Medications Acetaminophen (Acetaminophen 325 Mg Tab) 650 mg PO Q4H PRN PRN Reason: Headache or Minor Fever Stop: 07/30/25 17:00 Last Admin: 07/03/25 22:19 Dose: 650 mg Al Hydrox/Mg Hydrox/Simethicone (Aluminum/Magnesium Susp 30 Ml Udc) 30 ml PO Q4H PRN PRN Reason: GI Upset Stop: 07/30/25 17:00 Bismuth Subsalicylate (Bismuth Subsalicylate 262 Mg Chew) 2 tab PO Q30M PRN PRN Reason: Loose Stool/Diarrhea Stop: 07/30/25 17:00 Duloxetine HCl (Duloxetine Hcl 30 Mg Cap) 30 mg PO QAM JIMENA Stop: 07/31/25 12:44 Last Admin: 07/04/25 08:57 Dose: 30 mg Hydroxyzine HCl (Hydroxyzine Hcl 25 Mg Tab) 50 mg PO HSZ PRN PRN Reason: Insomnia Stop: 07/30/25 21:59 Hydroxyzine HCl (Hydroxyzine Hcl 25 Mg Tab) 25 mg PO Q4H PRN PRN Reason: Anxiety Stop: 07/30/25 17:00 Magnesium Hydroxide (Magnesium Hydroxide Susp 30 Ml Udc) 30 ml PO DAILY PRN PRN Reason: Constipation Stop: 07/30/25 17:00 Mirtazapine (Mirtazapine Tab 15 Mg Tab) 15 mg PO HS JIMENA Stop: 07/31/25 21:59 Last Admin: 07/03/25 22:20 Dose: 15 mg Pantoprazole Sodium (Pantoprazole 40 Mg Tab) 40 mg PO DAILY JIMENA Stop: 07/31/25 12:14 Last Admin: 07/04/25 08:57 Dose: 40 mg Sodium Chloride (Sodium Chloride 0.65% Na Soln 45 Ml ([place])) 1 - 2 sprays NA PRN PRN PRN Reason: Nasal Dryness/Congestion Stop: 07/30/25 17:00 Vitamin D (Cholecalciferol 125 Mcg (5,000 Units) Tab) 125 mcg PO QAM JIMENA Stop: 08/02/25 09:59 Last Admin: 07/04/25 08:57 Dose: 125 mcg Mental Health & Subst Abuse Tx Psychiatrist Name of Psychiatrist: Sirisha Herrmann (In person appt) Psychiatrist's Date Of Appointment With Psychiatric Provider: 07/27/25 Time of Appointment with Psychiatrist: 10:40AM Psychiatric Appointment Comment: [address] [facility] [address], [place] [address] Post Discharge Appointments Primary Care Physician Name Of Family Doctor/PCP: Flaco Edmondson - [facility] Other #1: Name of Aftercare Appointment: [facility] (Post hospitalization zoom meeting) Phone Number of Aftercare Appointment: [phone] Date of Aftercare Appointment: 07/12/25 Time of Aftercare Appointment: 10AM Aftercare Appointment Comment: Zoom link will be sent to your [facility] email Contact Information [facility]charge Discharge [facility] [place] [address]
--- NOTE | 2025-07-05 15:30 | Psychiatric Progress Note ---
Date of Service July 05, 2025 Impression / Recommendations Impression JODY LEE is a 24-year-old M who currently lives in [place] with his parents, has a history of anxiety and depression, and was admitted on 06/30/25 16:12 on a 201 voluntary commitment for SI with plans to shoot himself or cut himself. Diagnostically consistent with unspecified depressive disorder likely major depressive disorder recurrent episode with suicidal ideation and co-occurring social anxiety in the context of medication ineffectiveness and chronic psychosocial stressors. However also wonder about possible bipolar affective disorder type II and potential benefit of augmentation with a mood stabilizer given family history of bipolar disorder and depression onset during early adolescence. A: SI resolved and patient is future oriented to engage in therapy program. Maintains a constricted affect, endorses low mood and some ruminations. Continues to have some sleep maintenance dysfunction and mirtazapine has been effective. Overall, I spent a total of 35 minutes with this case including review of chart records, nursing report, review of lab work, direct evaluation of the patient at bedside, counseling the patient, multidisciplinary team meeting, orders, and documentation in the electronic health record. (1) Depression with suicidal ideation: (2) Social anxiety disorder: (3) Irritable bowel syndrome (IBS): (4) Attention and concentration deficit: Plan 07/05/2025: Continue medications and treatment plan 07/04/2025: Continue medications and treatment plan 07/03/25: Vit D3 5000u daily 07/02/25: D/c Adderall Labs: vit B12, vit D, fasting lipids, A1C 07/01/2025: The patient was admitted to the [facility] ([facility] unit) on q15 min checks (behavioral with suicide precautions) for safety. The patient wi ll participate in group, recreational, and milieu therapies and will be offered additional individual and family sessions as clinically appropriate. -Discontinue Pristiq and trazodone -Start duloxetine 30mg daily -Start mirtazapine 15mg HS -Start Adderall IR 10mg X1 today and then Adderall ER 20mg starting tomorrow morning Inventory Assets Strengths: supportive relationships, willing to get treatment Needs: safety and stabilization, medication adjustment, additional coping skills, increased outpatient services Suicide Risk Level Suicide Risk Level: High-Moderate (q15 min suicide checks) (worsening depression with SI with plans but feels safe in the hospital, feels able to ask for support) Suicide Risk Level Comments: Risk Factors Assessment Male: Yes : Yes Do You Have Access To A Gun?: No Health Problems: Yes (IBS) Mental Health Diagnoses: Yes Substance Use Disorders: No Previous Attempt: No Family History of Suicide: No Previous Psychiatric Hospitalization: No Hopelessness: Yes Protective Factors Assessment Employed: Yes Stable Relationships: Yes Supportive Family: Yes Interval History Identifying Information JODY LEE is a 24-year-old M who currently lives in [place] with his parents, has a history of anxiety and depression, and was admitted on 06/30/25 16:12 on a 201 voluntary commitment for SI with plans to shoot himself or cut himself. Chief Complaint Anxiety/Depression Review of Systems Sleep Information Total Hours of Sleep: 8 Meal Information Percent Meal Consumed - Breakfast: 100 Percent Meal Consumed - Lunch: 100 Percent Meal Consumed - Dinner: 100 Subjective Subjective Patient was seen & assessed and interval progress reviewed with treatment team nursing and social work Overnight slept well. Reports having 2 or 3 awakenings and able to go back to sleep. Determining next steps with parents and is considering an intensive outpatient program in [place]. Will discuss with them this evening. Denies SI. Tolerating medications well. Physical Exam Mental Examination Appearance: Well Groomed Eye Contact: Direct Eye Contact Motor Behavior: Unremarkable Speech: Soft Mood: Calm and Sad Affect: Constricted (more reactive now) Thought Process: Intact and Linear Thought Content: Intact Hallucinations: None Insight: Fair (to limited) Judgement: Good Vital Signs (Past 24 Hours) Last Vital Signs Temp 36.5 C 07/05/25 06:20 Pulse 91 H 07/05/25 06:21 Resp 16 07/05/25 06:20 BP 113/76 07/05/25 06:21 Pulse Ox 98 07/01/25 06:25 O2 Del Method Room Air 07/01/25 06:25 Results & Data (U) Current Inpatient Medications Current Inpatient Medications: Current Inpatient Medications Acetaminophen (Acetaminophen 325 Mg Tab) 650 mg PO Q4H PRN PRN Reason: Headache or Minor Fever Stop: 07/30/25 17:00 Last Admin: 07/03/25 22:19 Dose: 650 mg Al Hydrox/Mg Hydrox/Simethicone (Aluminum/Magnesium Susp 30 Ml Udc) 30 ml PO Q4H PRN PRN Reason: GI Upset Stop: 07/30/25 17:00 Bismuth Subsalicylate (Bismuth Subsalicylate 262 Mg Chew) 2 tab PO Q30M PRN PRN Reason: Loose Stool/Diarrhea Stop: 07/30/25 17:00 Duloxetine HCl (Duloxetine Hcl 30 Mg Cap) 30 mg PO QAM JIMENA Stop: 07/31/25 12:44 Last Admin: 07/05/25 09:12 Dose: 30 mg Hydroxyzine HCl (Hydroxyzine Hcl 25 Mg Tab) 50 mg PO HSZ PRN PRN Reason: Insomnia Stop: 07/30/25 21:59 Hydroxyzine HCl (Hydroxyzine Hcl 25 Mg Tab) 25 mg PO Q4H PRN PRN Reason: Anxiety Stop: 07/30/25 17:00 Magnesium Hydroxide (Magnesium Hydroxide Susp 30 Ml Udc) 30 ml PO DAILY PRN PRN Reason: Constipation Stop: 07/30/25 17:00 Mirtazapine (Mirtazapine Tab 15 Mg Tab) 15 mg PO HS JIMENA Stop: 07/31/25 21:59 Last Admin: 07/04/25 21:06 Dose: 15 mg Pantoprazole Sodium (Pantoprazole 40 Mg Tab) 40 mg PO DAILY JIMENA Stop: 07/31/25 12:14 Last Admin: 07/05/25 09:13 Dose: 40 mg Sodium Chloride (Sodium Chloride 0.65% Na Soln 45 Ml (Eagle)) 1 - 2 sprays NA PRN PRN PRN Reason: Nasal Dryness/Congestion Stop: 07/30/25 17:00 Vitamin D (Cholecalciferol 125 Mcg (5,000 Units) Tab) 125 mcg PO QAM JIMENA Stop: 08/02/25 09:59 Last Admin: 07/05/25 09:13 Dose: 125 mcg Mental Health & Subst Abuse Tx Psychiatrist Name of Psychiatrist: Sirisha Herrmann (In person appt) Psychiatrist's Date Of Appointment With Psychiatric Provider: 07/27/25 Time of Appointment with Psychiatrist: 10:40AM Psychiatric Appointment Comment: [address] [facility] [address], [place] [address] Post Discharge Appointments Primary Care Physician Name Of Family Doctor/PCP: [facility] Other #1: Name of Aftercare Appointment: [facility] (Post hospitalization zoom meeting) Phone Number of Aftercare Appointment: [phone] Date of Aftercare Appointment: 07/12/25 Time of Aftercare Appointment: 10AM Aftercare Appointment Comment: Zoom link will be sent to your [facility] email Contact Information Discharge Discharge [facility] [facility] [address] [place] [facility]
[2025-07-06 06:20] VITALS: TEMP 98.2
[2025-07-06] MEDS ORDERED: DESTROY THIS MEDICATION ONE (08:52)
--- NOTE | 2025-07-06 09:05 | Discharge Summary ---
Date of Service July 06, 2025 History of Present Illness He presents for psychiatric admission for worsening depression and SI with plan of shooting himself or cutting himself in the context of multiple psychosocial stressors including withdrawal from [employer], academic stress, concerns about his future career as well as worries about the state of the world and economy. He reports experiencing daily suicidal thoughts that have become more consistent with plans of possibly shooting himself with a gun or cutting himself compared to previous passive ideation which has occurred intermittently for the last few years. He describes feeling helpless and hopeless with lack of motivation, anhedonia and pessimism that have intensified significantly. He endorses depressive symptoms including anhedonia, decreased motivation, "negative thoughts", helplessness, hopelessness, decreased energy, decreased appetite but this is typical, and erratic sleep but trazodone has been helping make sleep more regular but often sleeps too much. SI has been occurring almost daily for the last few months and in recent weeks has intensified to become consistent and thinking about shooting himself or cutting himself. Prior to this exacerbation Jossue had been trying various medications for depression anxiety he has been taking Pristiq which seems to have helped with anxiety but not depression for the last few weeks. He reports that Cymbalta had been the most successful medication so far but was discontinued. Previous medications including Prozac and Zoloft worked briefly then stopped being effective and were discontinued. Wellbutrin showed no noticeable difference after about 3 weeks and was also discontinued. Jossue reports difficulty motivating himself to complete schoolwork struggling not due to inability but lack of interest. He suspects that this did not become an issue until college as previously he did well despite not getting work done or staying on track in terms of focusing. This is impact his academic performance leading to being in and out of college for the past 4 years. Additionally he reports not enjoying time spent with friends or even playing games, activities he previously found pleasurable unable to focus on. He identifies poor motivation and difficulty focusing on academics which has disrupted his ability to get through college over the last few years. Target symptoms identified as: motivation and lack of enjoyment "in anything that I'm doing". The anhedonia has been on and off, was problematic about a year ago and then worsened again about 2-3 months ago. He endorses some anxiety but doesn't feel this impacts him as much day to day. Tends to be more of an issue in social settings. He is currently prescribed: Pristiq (but met with Sirisha yesterday and plan was going to be switch this medication), trazodone 50mg HS (helps with sleep maintenance). Psychiatric ROS notable for no current nor history of symptoms of carrie, psychosis, PTSD, OCD nor eating disorder. History of self-harm/"anger management issues for a long time" with hitting head against desk or bedframe sometimes to the point of bruising or swelling typically if abrupt anger is triggered. Physical Exam Mental Examination Appearance: Well Groomed Eye Contact: Direct Eye Contact Motor Behavior: Unremarkable Speech: Soft Mood: Calm and Sad Affect: Constricted (more reactive now) Thought Process: Intact and Linear Thought Content: Intact Hallucinations: None Insight: Fair (to limited) Judgement: Good Vital Signs (Past 24 Hours) Last Vital Signs Temp 36.8 C 07/06/25 06:19 Pulse 79 07/06/25 06:19 Resp 16 07/06/25 06:19 BP 115/78 07/06/25 06:19 Pulse Ox 98 07/01/25 06:25 O2 Del Method Room Air 07/01/25 06:25 Principal Diagnosis Major Depressive Disorder Psychiatric Data See daily stay summary. In short, safety was maintained and the patient was cooperative with care. Medication changes included d/c home desvenlafaxine and trazodone, starting Duloxetine 30mg, mirtazapine 15mg hs, vit D supplement and they tolerated this well. A family session was held and safety plan was completed prior to discharge. The patient presented with suicidal ideations and active depressive episode previously being managed by PCP. SI resolved. Diagnostically appears to be MDD recurrent, there was concern for bipolar 2 depression given early onset of depression and treatment failures, however no clear hypomania/carrie episodes identified and no clear history of bipolar disorder in the family. He presented improved sleep and function throughout hospitalization and was goal directed towards an intensive outpatient program. Day of Discharge Assessment Today the patient voices readiness for discharge. They note improvement in mood and deny thoughts to harm self or others. Thoughts remain organized and they are improved from admission. There is no evidence of psychosis. They agree to take mediations as prescribed and keep follow-up appointments. They are stable for discharge to outpatient level of care. Overall, I spent a total of 40 minutes with this case including review of chart records, nursing report, review of lab work, direct evaluation of the patient at bedside, counseling the patient, multidisciplinary team meeting, orders, and documentation in the electronic health record. Transition of Care Transition Of Care Record: was reviewed with the patient Advance Directives Advance Directives Information Provided: Yes Advance Directives: No Mental Health Advance Directive: No Advance Directives on File: No Living Will: No Power of Lead Maintenance Technician: No Advance Directives Reason:: Declines as Mental Health Visit. Suicide Risk Level Suicide Risk Level Comments: Risk Factors Assessment Male: Yes : Yes Do You Have Access To A Gun?: No Health Problems: Yes (IBS) Mental Health Diagnoses: Yes Substance Use Disorders: No Previous Attempt: No Family History of Suicide: No Previous Psychiatric Hospitalization: No Hopelessness: Yes Protective Factors Assessment Employed: Yes Stable Relationships: Yes Supportive Family: Yes Discharge Data Lab Results 06/30/25 06/30/25 06/30/25 11:04 11:23 Unknown WBC 7.26 RBC 4.80 Hgb 14.3 Hct 40.8 L MCV 85.0 MCH 29.8 MCHC 35.0 RDW Std Deviation 36.9 RDW Coeff of Chema 11.9 Plt Count 246 MPV 10.6 Immature Gran % (Auto) 0.3 Neut % (Auto) 61.2 Lymph % (Auto) 27.4 Leslie % (Auto) 9.4 Eos % (Auto) 1.1 Baso % (Auto) 0.6 Neut # (Auto) 4.45 Lymph # (Auto) 1.99 Leslie # (Auto) 0.68 H Eos # (Auto) 0.08 Baso # (Auto) 0.04 Immature Gran # (Auto) 0.02 Sodium 138 Potassium 4.1 Chloride 104 Carbon Dioxide 27 Anion Gap 7 BUN 14 Creatinine 1.01 Est Cr Clr Drug Dosing 124.9 eGFR 107.17 BUN/Creatinine Ratio 13.9 Glucose 114 H Estimat Average Glucose Hemoglobin A1c Calcium 9.6 Total Bilirubin 0.5 AST 21 ALT 31 Alkaline Phosphatase 49 Total Protein 7.5 Albumin 4.7 Globulin 2.8 Albumin/Globulin Ratio 1.7 Triglycerides Cholesterol LDL Cholesterol, Calc VLDL Cholesterol, Calc HDL Cholesterol Cholesterol/HDL Ratio Vitamin B12 25-OH Vitamin D Total TSH 2.591 Urine Color Alyson Urine Appearance Turbid A Urine pH 6.0 Ur Specific Levan >= 1.030 Urine Protein 1+ H Urine Glucose (UA) Negative Urine Ketones Negative Urine Blood Trace-intact H Urine Nitrite Negative Urine Bilirubin Negative Urine Urobilinogen Negative Ur Leukocyte Esterase Negative Urine RBC 0-2 Urine WBC 0-5 Ur Epithelial Cells 0-2 Urine Bacteria 1+ H Urine Mucus Present A Urine Sperm Present A Urine Comment Salicylates < 3.0 L Urine Opiates Screen Neg Ur Methadone, Qual Neg Urine Fentanyl Screen Neg Acetaminophen < 3 L Urine Barbiturates Neg Ur Phencyclidine (PCP) Neg U Amphetamin/Meth Scrn Neg Urine MDEA negative MDMA (Ecstasy) Screen Pos H MDMA negative Urine MDMA negative U Benzodiazepines Scrn Neg Ur Cocaine Metabolite Neg U Marijuana (THC) Screen Neg Ethyl Alcohol mg/dL < 10.0 SARS-CoV-2, RNA, NAAT NEGATIVE 07/03/25 07:21 WBC RBC Hgb Hct MCV MCH MCHC RDW Std Deviation RDW Coeff of Chema Plt Count MPV Immature Gran % (Auto) Neut % (Auto) Lymph % (Auto) Leslie % (Auto) Eos % (Auto) Baso % (Auto) Neut # (Auto) Lymph # (Auto) Leslie # (Auto) Eos # (Auto) Baso # (Auto) Immature Gran # (Auto) Sodium Potassium Chloride Carbon Dioxide Anion Gap BUN Creatinine Est Cr Clr Drug Dosing eGFR BUN/Creatinine Ratio Glucose Estimat Average Glucose 111 Hemoglobin A1c 5.5 Calcium Total Bilirubin AST ALT Alkaline Phosphatase Total Protein Albumin Globulin Albumin/Globulin Ratio Triglycerides 183 H Cholesterol 195 LDL Cholesterol, Calc 126 VLDL Cholesterol, Calc 37 H HDL Cholesterol 32 Cholesterol/HDL Ratio 6.1 H Vitamin B12 208 25-OH Vitamin D Total 21.6 L TSH Urine Color Urine Appearance Urine pH Ur Specific Levan Urine Protein Urine Glucose (UA) Urine Ketones Urine Blood Urine Nitrite Urine Bilirubin Urine Urobilinogen Ur Leukocyte Esterase Urine RBC Urine WBC Ur Epithelial Cells Urine Bacteria Urine Mucus Urine Sperm Urine Comment Salicylates Urine Opiates Screen Ur Methadone, Qual Urine Fentanyl Screen Acetaminophen Urine Barbiturates Ur Phencyclidine (PCP) U Amphetamin/Meth Scrn Urine MDEA MDMA (Ecstasy) Screen MDMA Urine MDMA U Benzodiazepines Scrn Ur Cocaine Metabolite U Marijuana (THC) Screen Ethyl Alcohol mg/dL SARS-CoV-2, RNA, NAAT Hospital Course (1) Major depressive disorder with current active episode: (2) Social anxiety disorder: (3) Attention and concentration deficit: (4) Irritable bowel syndrome (IBS): (5) Vitamin D insufficiency: Plan 07/05/2025: Continue medications and treatment plan 07/04/2025: Continue medications and treatment plan 07/03/25: Vit D3 5000u daily 07/02/25: D/c Adderall Labs: vit B12, vit D, fasting lipids, A1C 07/01/2025: The patient was admitted to the [facility] ([facility] health unit) on q15 min checks (behavioral with suicide precautions) for safety. The patient will participate in group, recreational, and milieu therapies and will be offered additional individual and family sessions as clinically appropriate. -Discontinue Pristiq and trazodone -Start duloxetine 30mg daily -Start mirtazapine 15mg HS -Start Adderall IR 10mg X1 today and then Adderall ER 20mg starting tomorrow morning Mental Health & Subst Abuse Tx Psychiatrist Name of Psychiatrist: Sirisha Herrmann (In person appt) Psychiatrist's Date Of Appointment With Psychiatric Provider: 07/27/25 Time of Appointment with Psychiatrist: 10:40AM Psychiatric Appointment Comment: [address] [facility] [address], [place] [address] Post Discharge Appointments Primary Care Physician Name Of Family Doctor/PCP: Flaco Ed[facility] - [facility] Other #1: Name of Aftercare Appointment: [facility] (Post hospitalization zoom meeting) Phone Number of Aftercare Appointment: [phone] Date of Aftercare Appointment: 07/12/25 Time of Aftercare Appointment: 10AM Aftercare Appointment Comment: Zoom link will be sent to your [facility] email Contact Information Discharge Discharge Address: [address] [place] [id number] Discharge Plan Discharge Items Patient Disposition: Home - Self-Care Reason For Visit: UNSPECIFIED DEPRESSIVE DISORDER Discharge Diagnosis: Major Depressive Disorder Social Anxiety Disorder Irritable bowel syndrome (IBS): Attention and concentration deficit: Condition on Discharge: Fair Activity: Resume your previous activity Non-emergency contact: Primary Care Provider, Psychiatrist and Therapist Call non-emergency contact if: you have any medication questions and your symptoms worsen Follow-up/Referrals: Flaco Edmondson, [Primary Care Provider] - Diet: Regular Addtl Attending Provider Instructions: Continue Duloxetine 30mg daily, take with food Continue Mirtazapine 15mg at bedtime Continue Vitamin D supplement, can also buy over the counter. follow-up with primary care doctor in 6 months for updated blood levels Engage in mindfulness meditation, self care, and cognitive behavioral therapy Pending Studies at Discharge: No Stand-Alone Forms: [facility], Smoking Cessation Medications and DC Order Prescriptions: New mirtazapine 15 mg Tablet 15 mg PO HS Qty: 30 0RF duloxetine 30 mg Capsule,Delayed Release(Dr/Ec) 30 mg PO QAM Qty: 30 0RF cholecalciferol (vitamin D3) 125 mcg (5,000 unit) Tablet 125 mcg PO QAM Qty: 30 0RF hydroxyzine HCl 50 mg tablet 50 mg PO DAILY PRN (Reason: insomnia, anxiety) Qty: 30 0RF Continued esomeprazole magnesium 20 mg capsule,delayed release(DR/EC) 20 mg PO DAILY Qty: 90 3RF Discontinued trazodone 50 mg tablet 50 mg PO QPM desvenlafaxine succinate 25 mg tablet extended release 24 hr 25 mg PO DAILY Discharge Orders: Discharge Order (Routine); Ordered 07/06/25 Ordered By: Ken Venegas Admission Data Admit Date/Time: 06/30/25 16:12 Attending Provider: Ken Venegas Admit Provider: Catie Swan Primary Care Provider: Flaco Ed[facility]son C[place] [address] D/C day mgmt > 30 min Patient Type Established History Detailed Exam Detailed Medical Decision Making Moderate Complexity Diagnoses Major depressive disorder with current active episode F32.9 Social anxiety disorder F40.10 Attention and concentration deficit R41.840 Irritable bowel syndrome (IBS) K58.9 Vitamin D insufficiency E55.9
[2025-07-06 09:41] VITALS: BP 121/81; PULSE 85
== END 2025-07-06 10:55 | disposition home or self-care (01) | DRG 885 ==
LOC: ED 10:46 → 3S 16:08 → SUATTDRO 16:12